=== PATIENT | female | born 1960 | race Caucasian/White ===

== ENCOUNTER 2023-08-26 11:55 | Day surgery (SDC) | payer BC ==
[2023-08-26] VITALS (10 sets, daily range): BP systolic 117–143; BP diastolic 48–67; PULSE 64–79; TEMP 98.4
[~2023-08-26] VITALS: Ht 154.9 cm; Wt 94.5 kg
[~2023-08-26 11:55] MED LIST: AMBIEN 5MG TABLE5 MG PO; ASPERCREME ARTH50 GM TP; COZAAR100 MG PO; HCTZ12.5TAB PO; KRILL OIL 5001 EACH PO; MASON NATURAL2000 IU PO; NORVASC 5MG5 MG/TAB PO; PEPCID 20MG TAB20 MG PO; TRICOR 48MG48 MG PO; ZYRTEC 10MG10 MG PO
[2023-08-26] MEDS ORDERED: 1/2 NS 1,000 ML IV SCH (12:15)
[2023-08-26 12:32] LABS: HEMATOCRIT 43.1 % (37.0-47.0); MEAN CELL VOLUME 88 fl (80.0-100.0); MEAN CORPUSCULAR HEMOGLOBIN 29 pg (27-31); MEAN CORPUSCULAR HGB CONC 33 g/dl (33.0-37.0); MEAN PLATELET VOLUME 9.2 fl (7.4-10.4); PLATELET COUNT 401 K/mm3 (130-400); RED BLOOD COUNT 4.92 M/mm3 (4.10-5.30)
[2023-08-26 12:37] LABS: INR 1.1 (0.8-3.0); PROTHROMBIN TIME 12.4 SECONDS (9.7-12.8)
[2023-08-26 12:40] LABS: PARTIAL THROMBOPLASTIN TIME 35.1 SECONDS (26.0-37.0)
[2023-08-26] MEDS ORDERED: Nitroglycerin 2% Topical Oint 1 GM UD TD SCH (12:43)
[2023-08-26 12:50] LABS: CALCIUM 10.2 mg/dL (8.4-10.2); CREATININE, serum 0.97 mg/dL (0.57-1.11); POTASSIUM 3.7 mEq/L (3.5-4.5)
[2023-08-26] MEDS ORDERED: WEGOVY0.5 MG/0.5 SQ (12:56)
--- NOTE | 2023-08-26 13:08 | NUR ---
Initial visit; Patient thanked Hog Ringer for offering prayer prior to having a 'Heart Catherization.' Abeba in good spirits and along with her appreciate Hog Ringer visiting and offering Spiritual Care.
--- NOTE | 2023-08-26 14:38 | NUR ---
See merge forall medication, assessment, intervention, and vitalsign times.
[2023-08-26] MEDS ORDERED: niCARdipine (Cath Lab) 100 MCG/ML 10 ML VIAL INCOR SCH (14:43)
[2023-08-26] MEDS ORDERED: Heparin 1,000 UNITS/ML 10 ML Multi-Dose VIAL IV SCH (14:46)
[2023-08-26] MEDS ORDERED: Midazolam 2 MG/2 ML VIAL IV SCH (15:16)
[2023-08-26] MEDS ORDERED: fentaNYL 50 MCG/ML 2 ML VIAL IV SCH (15:19)
[2023-08-26] MEDS ORDERED: Iohexol 350 - 100 ML VIAL INCOR ONE (15:19)
[2023-08-26] MEDS ORDERED: IMDUR 30MG30 MG/TAB PO (15:30)
--- NOTE | 2023-08-26 15:38 | NUR ---
Bedside report completed with Magdalena CONKLIN, call light within reach, fluids at 100 ml/hr, insertion site reviewed. Magdalena CONKLIN denies questions/concerns at this time.
--- NOTE | 2023-08-26 18:23 | NUR ---
Pt ambulated with a steady gait to EU15 accompanied by .Pt is scheduled for a [facility]. EKG done. IV started, labs drawn. Meds and HX reviewed with the pt. Consent for the procedure signed. Post procedure pt came back to EU15. Right radial site assessed. Site clean and dry. Offered the pt something to eat and drink, pt accepted a water, coffee, and a muffin. Pt was bedrest for 2 hr post procedure. Once the 2 hrs was up the pt got up and walked to the bathroom, pt did not feel dizzy or weak. Walked to the bathroom with a steady gait. Once the pt was back to their room air was released for the right radial band. 2 mls of air about every 15 mins. During the releasing of air the site remained clean and dry. Once all the air was released a band-aid was applied to the radial site. The deflated radial band was then reapplied as a reminder to limit the extremity use. Discharge education and information discussed with the pt. No questions at this time. The pts IV was dc'd and wrapped with coban. Pt exited the unit by wheelchair, accompanied by the nurse to husbands car.
== END 2023-08-26 18:25 | disposition home or self-care (01) ==
LOC: COL.CAR 11:55
PROVIDERS: Internal Medicine Cardiovascular Disease
DX: I25.10 Atherosclerotic heart disease of native coronary artery without angina pectoris (principal); I10 Essential (primary) hypertension; I35.9 Nonrheumatic aortic valve disorder, unspecified; Z79.899 Other long term (current) drug therapy
CPT/HCPCS: C1769; J1644; J2250; J2404; J3010; Q9967